=== PATIENT | male | born 1955 | race Caucasian/White ===

== ENCOUNTER → 2016-06-19 | Outpatient (CLI) | payer MEDICARE ==
[~2016-06-19] MED LIST: ADVAIR 250/501 EA INH; ALBUTEROL0.09 MG/A1 INH; AMOXICILLIN500 M2 PO; ASPIR 8181 MG PO; ASPIRIN DELAYE325 MG PO; CELEXA20 MG PO; CELEXA40 MG PO; FLOVENT0.044 MG/A IH; LIDEX0.05% T; LIPITOR80 MG PO; LISINOPRIL5 MG PO; LOPRESSOR25 MG PO; MEDROL DOSEPAK4 MG PO; PREDNICOT20 MG PO; SPIRIVA18 MCG IH; SYMBICORT1 AE1 INH; VALIUM5 MG PO
== END | disposition home or self-care (01) ==
LOC: LAB 11:14
DX: F41.9 Anxiety disorder, unspecified (principal)

== ENCOUNTER 2017-01-04 12:32 | Emergency (ER) | payer MEDICARE ==
[~2017-01-04] VITALS: Ht 180.3 cm; Wt 81.6 kg
[2017-01-04 13:08] LABS: BASO % 0.4 % (0.0-1.0); EOS # 0.1 10*3/uL (0.0-0.4); EOS % 0.9 % (1.0-4.0); HEMATOCRIT 48.3 % (42.0-52.0); HEMOGLOBIN 16.9 g/dl (14.0-18.0); LYMPH # 1.2 10*3/uL (1.3-4.4); LYMPH % 12.5 % (27.0-41.0); MEAN CELL VOLUME 92.5 fl (80.0-94.0); MEAN CORPUSCULAR HGB 32.4 pg (27.0-31.0); MONO # 0.6 10*3/uL (0.1-1.0); MONO % 6.5 % (3.0-9.0); NEUT # 7.8 10*3/uL (2.3-7.9); NEUT % 79.3 % (47.0-73.0); PLATELET COUNT AUTOMATED 305 10*3/uL (130-400); RED BLOOD COUNT 5.22 10*6/uL (4.50-5.90); RED CELL DISTRI WIDTH 13.1 % (0-14.5); WHITE BLOOD COUNT 9.8 10*3/uL (4.8-10.8)
[2017-01-04 13:17] LABS: ACT PARTIAL THROMBO TIME 26.9 SECONDS (20.8-31.5)
[2017-01-04 13:31] LABS: ALBUMIN 4.1 gm/dl (3.1-4.5); ALKALINE PHOSPHATASE 138 U/L (45-117); BUN 12 mg/dl (7-24); CHLORIDE 100 mmol/L (98-107); CREATININE 1.08 mg/dL (0.70-1.30); SGOT/AST 34 IU/L (3-35); SGPT/ALT 41 U/L (12-78); SODIUM 133 mmol/L (136-145); TOTAL PROTEIN 7.9 gm/dL (6.4-8.2)
[2017-01-04 13:33] LABS: TROPONIN I < 0.015 ng/ml (<0.045)
[2017-01-04] MEDS ORDERED: PROVENTIL HFA6.7 GM INH (14:17)
[2017-01-04] MEDS ORDERED: MEDROL DOSEPAK4 MG PO (14:17)
== END 2017-01-04 15:01 | disposition home or self-care (01) ==
LOC: ED 12:32
PROVIDERS: Emergency Medicine
DX: J44.1 Chronic obstructive pulmonary disease with (acute) exacerbation (principal); E87.1 Hypo-osmolality and hyponatremia; J96.00 Acute respiratory failure, unspecified whether with hypoxia or hypercapnia; F17.200 Nicotine dependence, unspecified, uncomplicated; F10.10 Alcohol abuse, uncomplicated; Z79.82 Long term (current) use of aspirin; Z79.899 Other long term (current) drug therapy

== ENCOUNTER 2017-07-09 13:05 | Emergency (ER) | payer MEDICARE ==
[~2017-07-09] VITALS: Ht 180.3 cm; Wt 73.9 kg
[~2017-07-09 13:05] MED LIST changes: +PROVENTIL HFA6.7 GM INH
[2017-07-09 13:44] LABS: BASO # 0.1 10*3/uL (0.0-0.1); BASO % 0.7 % (0.0-1.0); EOS # 0.2 10*3/uL (0.0-0.4); EOS % 2.1 % (1.0-4.0); HEMATOCRIT 44.6 % (42.0-52.0); HEMOGLOBIN 15.2 g/dl (14.0-18.0); LYMPH # 1.2 10*3/uL (1.3-4.4); LYMPH % 16.6 % (27.0-41.0); MEAN CELL VOLUME 95.1 fl (80.0-94.0); MEAN CORPUSCULAR HGB 32.4 pg (27.0-31.0); MEAN CORPUSCULAR HGB CONC 34.1 g/dl (33.0-37.0); MEAN PLATELET VOLUME 9.7 fl (9.6-12.3); MONO # 0.6 10*3/uL (0.1-1.0); MONO % 8.4 % (3.0-9.0); NEUT % 71.8 % (47.0-73.0); PLATELET COUNT AUTOMATED 232 10*3/uL (130-400); RED BLOOD COUNT 4.69 10*6/uL (4.50-5.90); RED CELL DISTRI WIDTH 13.8 % (0-14.5)
[2017-07-09 14:00] LABS: ALBUMIN 3.9 gm/dl (3.1-4.5); ALKALINE PHOSPHATASE 118 U/L (45-117); BUN 13 mg/dl (7-24); CHLORIDE 103 mmol/L (98-107); CREATININE 1.35 mg/dL (0.70-1.30); LIPASE 87 U/L (73-393); POTASSIUM 5.1 mmol/L (3.5-5.1); SGOT/AST 51 IU/L (3-35); SGPT/ALT 68 U/L (12-78); SODIUM 136 mmol/L (136-145); TOTAL PROTEIN 7.4 gm/dL (6.4-8.2)
[2017-07-09 14:11] LABS: TROPONIN I < 0.015 ng/ml (<0.045)
[2017-07-09] MEDS ORDERED: PREDNISONE10 MG PO (14:42)
[2017-07-09] MEDS ORDERED: ZOFRAN4 MG PO (14:42)
== END 2017-07-09 14:46 | disposition home or self-care (01) ==
LOC: ED 13:05
PROVIDERS: Nurse Practitioner Family
DX: K52.9 Noninfective gastroenteritis and colitis, unspecified (principal); J44.9 Chronic obstructive pulmonary disease, unspecified; F17.200 Nicotine dependence, unspecified, uncomplicated; Z79.82 Long term (current) use of aspirin; Z79.899 Other long term (current) drug therapy

== ENCOUNTER → 2017-09-15 | Outpatient (CLI) | payer MEDICARE ==
[~2017-09-15] MED LIST changes: +PREDNISONE10 MG PO; +ZOFRAN4 MG PO
[2017-09-15 11:36] LABS: CREATININE 1.38 mg/dL (0.70-1.30)
== END | disposition home or self-care (01) ==
LOC: CT 08:00 → LAB 10:57 → CT 11:00
PROVIDERS: Radiology Diagnostic Radiology
DX: N20.0 Calculus of kidney (principal); N26.1 Atrophy of kidney (terminal); R19.7 Diarrhea, unspecified; R63.0 Anorexia; R63.4 Abnormal weight loss; F17.210 Nicotine dependence, cigarettes, uncomplicated

== ENCOUNTER 2017-10-13 13:44 | Inpatient (IN) | payer MEDICARE ==
[~2017-10-13] VITALS: Ht 180.3 cm; Wt 72.2 kg
--- NOTE | ~2017-10-13 | EKG ---
[place], [place] ELECTROCARDIOGRAM REPORT NAME: JAE JANE UNIT #: [id number] ROOM: 422 DOCTOR: ZEINAB DRAFT REPORT BIRTHDATE: [birth year] [facility] Test Date: 2017-10-13 Test Time: 15:06:52 Pat Name: JAE JANE Department: Room: 422 Gender: M Sales Service Professional: SS RESP : 1955 Requested By: PIPE NUGENT PA-C Order Number: [id number] Reading MD: Margi Muñoz MD Measurements Intervals [place] Rate: 58 P: 42 AL: 146 QRS: 18 QRSD: 98 T: 17 QT: 473 QTc: 465 Interpretive Statements Sinus rhythm Borderline low voltage, extremity leads Electronically Signed On 10-14-2017 10:46:33 PDT by Margi Muñoz MD CM:EKGRPT:ELECTROCARDIOGRAM REPORT [id number] PIPE ARRIOLA DRAFT REPORT PIPE NUGENT PA-C
[2017-10-13 13:49] VITALS: BP 108/67
[2017-10-13 15:06] LABS: BASO % 0.5 % (0.0-1.0); EOS # 0.4 10*3/uL (0.0-0.4); EOS % 4.9 % (1.0-4.0); HEMATOCRIT 40.7 % (42.0-52.0); HEMOGLOBIN 13.8 g/dl (14.0-18.0); LYMPH # 1.1 10*3/uL (1.3-4.4); LYMPH % 15.5 % (27.0-41.0); MEAN CELL VOLUME 98.1 fl (80.0-94.0); MEAN CORPUSCULAR HGB 33.3 pg (27.0-31.0); MEAN CORPUSCULAR HGB CONC 33.9 g/dl (33.0-37.0); MEAN PLATELET VOLUME 9.5 fl (9.6-12.3); MONO # 0.6 10*3/uL (0.1-1.0); NEUT # 5.2 10*3/uL (2.3-7.9); NEUT % 70.7 % (47.0-73.0); PLATELET COUNT AUTOMATED 222 10*3/uL (130-400); RED BLOOD COUNT 4.15 10*6/uL (4.50-5.90); RED CELL DISTRI WIDTH 14.3 % (0-14.5); WHITE BLOOD COUNT 7.3 10*3/uL (4.8-10.8)
[2017-10-13 15:23] LABS: ALBUMIN 3.6 gm/dl (3.1-4.5); ALKALINE PHOSPHATASE 99 U/L (45-117); BUN 12 mg/dl (7-24); CHLORIDE 105 mmol/L (98-107); CREATININE 1.45 mg/dL (0.70-1.30); POTASSIUM 4.5 mmol/L (3.5-5.1); SGOT/AST 21 IU/L (3-35); SGPT/ALT 26 U/L (12-78); SODIUM 139 mmol/L (136-145); TOTAL PROTEIN 7.3 gm/dL (6.4-8.2)
[2017-10-13 15:24] LABS: TROPONIN I < 0.015 ng/ml (<0.045)
[2017-10-13 17:35] VITALS: BP 119/71
[2017-10-13 18:40] VITALS: BP 145/67
[2017-10-13] MEDS ORDERED: PRILOSEC20 M1 PO (18:46)
[2017-10-13] MEDS ORDERED: COREG3.125 MG PO (18:46)
[2017-10-14] VITALS: BP 114/63
[2017-10-14 06:36] LABS: BASO # 0.1 10*3/uL (0.0-0.1); BASO % 0.7 % (0.0-1.0); EOS # 0.5 10*3/uL (0.0-0.4); EOS % 7.1 % (1.0-4.0); HEMATOCRIT 39.9 % (42.0-52.0); HEMOGLOBIN 13.3 g/dl (14.0-18.0); LYMPH # 1.8 10*3/uL (1.3-4.4); LYMPH % 24.1 % (27.0-41.0); MEAN CELL VOLUME 98.3 fl (80.0-94.0); MEAN CORPUSCULAR HGB 32.8 pg (27.0-31.0); MEAN CORPUSCULAR HGB CONC 33.3 g/dl (33.0-37.0); MEAN PLATELET VOLUME 10.3 fl (9.6-12.3); MONO # 0.5 10*3/uL (0.1-1.0); MONO % 7.3 % (3.0-9.0); NEUT # 4.4 10*3/uL (2.3-7.9); NEUT % 60.4 % (47.0-73.0); PLATELET COUNT AUTOMATED 219 10*3/uL (130-400); RED BLOOD COUNT 4.06 10*6/uL (4.50-5.90); RED CELL DISTRI WIDTH 14.3 % (0-14.5); WHITE BLOOD COUNT 7.3 10*3/uL (4.8-10.8)
[2017-10-14 07:07] LABS: BUN 14 mg/dl (7-24); CHLORIDE 108 mmol/L (98-107); CHOLESTEROL 132 mg/dL (<200); CREATININE 1.39 mg/dL (0.70-1.30); FREE T4 0.96 ng/dl (0.76-1.46); HDL CHOLESTEROL 59 mg/dl (40-60); LDL CHOLESTEROL 52 mg/dL (9-159); PHOSPHOROUS 4.5 mg/dL (2.5-4.9); POTASSIUM 4.1 mmol/L (3.5-5.1); SODIUM 140 mmol/L (136-145); TRIGLYCERIDES 107 mg/dl (<150); VLDL CHOLESTEROL 21 mg/dL (6-40)
[2017-10-14 07:37] LABS: VITAMIN D, 25-HYDROXY 11.2 ng/mL (30-100)
[2017-10-14 08:00] VITALS: BP 136/70
[2017-10-14 12:00] VITALS: BP 110/57
[2017-10-14 15:55] VITALS: BP 107/64
[2017-10-14 20:00] VITALS: BP 107/62
[2017-10-15] VITALS: BP 133/75
[2017-10-15 06:31] LABS: BASO % 0.5 % (0.0-1.0); EOS # 0.5 10*3/uL (0.0-0.4); EOS % 5.7 % (1.0-4.0); HEMATOCRIT 40.3 % (42.0-52.0); HEMOGLOBIN 13.2 g/dl (14.0-18.0); LYMPH # 1.8 10*3/uL (1.3-4.4); MEAN CELL VOLUME 98.1 fl (80.0-94.0); MEAN CORPUSCULAR HGB 32.1 pg (27.0-31.0); MEAN CORPUSCULAR HGB CONC 32.8 g/dl (33.0-37.0); MEAN PLATELET VOLUME 10.2 fl (9.6-12.3); MONO # 0.6 10*3/uL (0.1-1.0); MONO % 7.3 % (3.0-9.0); NEUT % 63.2 % (47.0-73.0); PLATELET COUNT AUTOMATED 204 10*3/uL (130-400); RED BLOOD COUNT 4.11 10*6/uL (4.50-5.90); WHITE BLOOD COUNT 7.8 10*3/uL (4.8-10.8)
[2017-10-15 06:45] LABS: BUN 12 mg/dl (7-24); CHLORIDE 108 mmol/L (98-107); CREATININE 1.27 mg/dL (0.70-1.30); POTASSIUM 4.1 mmol/L (3.5-5.1); SODIUM 140 mmol/L (136-145)
[2017-10-15 08:00] VITALS: BP 137/73
[2017-10-15 12:00] VITALS: BP 117/67
[2017-10-15 16:00] VITALS: BP 117/59
[2017-10-15 20:00] VITALS: BP 106/65
[2017-10-16] VITALS: BP 126/77
[2017-10-16 06:03] LABS: BUN 13 mg/dl (7-24); CHLORIDE 109 mmol/L (98-107); CREATININE 1.13 mg/dL (0.70-1.30); POTASSIUM 3.8 mmol/L (3.5-5.1); SODIUM 142 mmol/L (136-145)
[2017-10-16 08:00] VITALS: BP 126/70
[2017-10-16 12:00] VITALS: BP 138/72
[2017-10-16 16:00] VITALS: BP 131/61
[2017-10-16 20:00] VITALS: BP 131/61
[2017-10-16 22:00] VITALS: BP 131/61
[2017-10-17] VITALS: BP 134/56
[2017-10-17 08:00] VITALS: BP 127/69
[2017-10-17 12:00] VITALS: BP 114/62
[2017-10-17] MEDS ORDERED: CITALOPRAM20 MG PO (12:29)
[2017-10-17] MEDS ORDERED: DULOXETINE HCL30 MG PO (12:29)
[2017-10-17] MEDS ORDERED: VITAMIN D5000 UNI1 PO (12:29)
[2017-10-17] MEDS ORDERED: DULOXETINE HCL60 MG PO (12:29)
== END 2017-10-17 14:31 | disposition home or self-care (01) | DRG 191 ==
LOC: ED 13:44 → EDHOLD 16:52 → 4E 16:52
PROVIDERS: Internal Medicine; Physician Assistant; Student in an Organized Health Care Education/Training Program
DX: J44.1 Chronic obstructive pulmonary disease with (acute) exacerbation (principal); F33.9 Major depressive disorder, recurrent, unspecified; I25.10 Atherosclerotic heart disease of native coronary artery without angina pectoris; E83.41 Hypermagnesemia; Z95.5 Presence of coronary angioplasty implant and graft; M94.0 Chondrocostal junction syndrome [Tietze]; D53.9 Nutritional anemia, unspecified; N18.9 Chronic kidney disease, unspecified; E66.9 Obesity, unspecified; K21.9 Gastro-esophageal reflux disease without esophagitis; I12.9 Hypertensive chronic kidney disease with stage 1 through stage 4 chronic kidney disease, or unspecified chronic kidney disease; G89.29 Other chronic pain; M54.9 Dorsalgia, unspecified; F41.1 Generalized anxiety disorder; Z72.0 Tobacco use; Z71.6 Tobacco abuse counseling; Z79.899 Other long term (current) drug therapy; Z79.82 Long term (current) use of aspirin; Z82.49 Family history of ischemic heart disease and other diseases of the circulatory system; Z82.3 Family history of stroke; I25.2 Old myocardial infarction; Z68.22 Body mass index [BMI] 22.0-22.9, adult

== ENCOUNTER 2018-06-15 02:13 | Emergency (ER) | payer MEDICARE ==
[~2018-06-15] VITALS: Ht 180.3 cm; Wt 81.6 kg
--- NOTE | ~2018-06-15 | EKG ---
[place], [place] ELECTROCARDIOGRAM REPORT NAME: JAE JANE UNIT #: [id number] ROOM: DOCTOR: EPIPHANY DRAFT REPORT BIRTHDATE: [birth year] [facility] Test Date: 2018-06-15 Test Time: 02:21:53 Pat Name: JAE JANE Department: ER Room: 8 Gender: M [employer] Team Lead: : 1955 Requested By: ABDIRAHMAN GRAY Order Number: [id number] Reading MD: Wild Escoto MD Measurements Intervals [place] Rate: 67 P: 41 NE: 150 QRS: 49 QRSD: 113 T: 16 QT: 423 QTc: 447 Interpretive Statements Sinus rhythm Multiple ventricular premature complexes Borderline intraventricular conduction delay Borderline low voltage, extremity leads Baseline wander in lead(s) V4,V5 Compared to ECG 10/13/2017 15:06:52 Ventricular premature complex(es) now present Electronically Signed On 06-16-2018 8:12:55 PDT by Wild Escoto MD CM:EKGRPT:ELECTROCARDIOGRAM REPORT [id number] ABDIRAHMAN GRAY MD EPIPHANY DRAFT REPORT ABDIRAHMAN GRAY MD
[~2018-06-15 02:13] MED LIST changes: +CITALOPRAM20 MG PO; +COREG3.125 MG PO; +DULOXETINE HCL30 MG PO; +DULOXETINE HCL60 MG PO; +PRILOSEC20 M1 PO; +VITAMIN D5000 UNI1 PO
[2018-06-15 02:36] LABS: BASO % 0.3 % (0.0-1.0); EOS # 0.1 10*3/uL (0.0-0.4); EOS % 0.8 % (1.0-4.0); HEMATOCRIT 47.5 % (42.0-52.0); HEMOGLOBIN 16.2 g/dl (14.0-18.0); LYMPH # 1.2 10*3/uL (1.3-4.4); LYMPH % 12.5 % (27.0-41.0); MEAN CORPUSCULAR HGB 32.4 pg (27.0-31.0); MEAN CORPUSCULAR HGB CONC 34.1 g/dl (33.0-37.0); MEAN PLATELET VOLUME 9.7 fl (9.6-12.3); MONO # 0.7 10*3/uL (0.1-1.0); NEUT # 7.8 10*3/uL (2.3-7.9); NEUT % 78.4 % (47.0-73.0); PLATELET COUNT AUTOMATED 214 10*3/uL (130-400); RED CELL DISTRI WIDTH 14.6 % (0-14.5); WHITE BLOOD COUNT 9.9 10*3/uL (4.8-10.8)
[2018-06-15 02:54] LABS: ALBUMIN 3.6 gm/dl (3.1-4.5); ALKALINE PHOSPHATASE 97 U/L (45-117); BUN 23 mg/dl (7-24); CHLORIDE 103 mmol/L (98-107); CREATININE 1.27 mg/dL (0.70-1.30); POTASSIUM 4.7 mmol/L (3.5-5.1); SGOT/AST 28 IU/L (3-35); SGPT/ALT 41 U/L (12-78); SODIUM 134 mmol/L (136-145); TOTAL PROTEIN 7.2 gm/dL (6.4-8.2)
[2018-06-15 02:58] LABS: TROPONIN I < 0.015 ng/ml (<0.045)
[2018-06-15 02:58] LABS: ACT PARTIAL THROMBO TIME 24.7 SECONDS (20.8-31.5); INTERNATIONAL NORM RATIO 0.9 (2.0-3.5)
[2018-06-15 03:14] LABS: BILIRUBIN NEGATIVE (NEGATIVE); BLOOD NEGATIVE (NEGATIVE); CLARITY CLEAR (CLEAR); COLOR YELLOW (YELLOW); GLUCOSE NEGATIVE (NEGATIVE); KETONE NEGATIVE (NEGATIVE); LEUKO ESTERASE NEGATIVE (NEGATIVE); NITRITE NEGATIVE (NEGATIVE); PH 5.5 (5.0-9.0); UROBILINOGEN 0.2 E.U./dl (0.2-1.0)
[2018-06-15 03:22] LABS: WBC 0-2 wbc/hpf (0-5)
[2018-06-15] MEDS ORDERED: PREDNISONE20 M1 PO (04:42)
[2018-06-15] MEDS ORDERED: NORCO 5-325 TA1 EACH PO (04:42)
[2018-06-15] MEDS ORDERED: FLOMAX0.4 MG PO (04:42)
[2018-06-15] MEDS ORDERED: Accuneb 0.1.25 MG/3 INH (04:42)
== END 2018-06-15 05:29 | disposition home or self-care (01) ==
LOC: ED 02:13
PROVIDERS: Emergency Medicine Emergency Medical Services
DX: N13.2 Hydronephrosis with renal and ureteral calculous obstruction (principal); R06.02 Shortness of breath; J44.9 Chronic obstructive pulmonary disease, unspecified; I25.10 Atherosclerotic heart disease of native coronary artery without angina pectoris; E66.9 Obesity, unspecified; K21.9 Gastro-esophageal reflux disease without esophagitis; I12.9 Hypertensive chronic kidney disease with stage 1 through stage 4 chronic kidney disease, or unspecified chronic kidney disease; N18.9 Chronic kidney disease, unspecified; F17.200 Nicotine dependence, unspecified, uncomplicated; Z79.899 Other long term (current) drug therapy; Z79.82 Long term (current) use of aspirin; Z87.442 Personal history of urinary calculi; Z95.1 Presence of aortocoronary bypass graft; Z95.5 Presence of coronary angioplasty implant and graft

== ENCOUNTER 2018-12-04 09:22 | Emergency (ER) | payer MEDICARE ==
[~2018-12-04] VITALS: Ht 180.3 cm; Wt 81.6 kg
[~2018-12-04 09:22] MED LIST changes: +Accuneb 0.1.25 MG/3 INH; +FLOMAX0.4 MG PO; +NORCO 5-325 TA1 EACH PO; +PREDNISONE20 M1 PO
[2018-12-04] MEDS ORDERED: NORCO 5-325 TA1 EACH PO (11:18)
[2018-12-04] MEDS ORDERED: ROBAXIN-750750 MG PO (11:18)
== END 2018-12-04 12:24 | disposition home or self-care (01) ==
LOC: ED 09:22
DX: S22.088A Other fracture of T11-T12 vertebra, initial encounter for closed fracture (principal); S00.93XA Contusion of unspecified part of head, initial encounter; I25.2 Old myocardial infarction; J44.9 Chronic obstructive pulmonary disease, unspecified; I10 Essential (primary) hypertension; F17.200 Nicotine dependence, unspecified, uncomplicated; Z79.899 Other long term (current) drug therapy; Z79.82 Long term (current) use of aspirin; W01.198A Fall on same level from slipping, tripping and stumbling with subsequent striking against other object, initial encounter; Y93.89 Activity, other specified; Y92.89 Other specified places as the place of occurrence of the external cause; Y99.8 Other external cause status

== ENCOUNTER → 2018-12-12 | Outpatient (CLI) | payer MEDICARE ==
[~2018-12-12] MED LIST changes: +ROBAXIN-750750 MG PO
== END | disposition home or self-care (01) ==
LOC: MRI 10:23
DX: M48.54XD Collapsed vertebra, not elsewhere classified, thoracic region, subsequent encounter for fracture with routine healing (principal); D17.79 Benign lipomatous neoplasm of other sites